=== PATIENT | female | born 2000 | race Caucasian/White ===

== ENCOUNTER 2019-04-24 14:15 | Emergency (ER) | payer BC ==
[2019-04-24 14:51] VITALS: O2SAT 100
--- NOTE | 2019-04-24 14:59 | ED.PDOC ---
History of Present Illness - General Chief Complaint: General Time Seen by Provider: 04/24/19 14:55 Source: patient, EMS notes reviewed Additional Information: 18 YEAR OLD COMPLAINTS OF PAIN LEFT LOWER LATERAL CHEST WALL LAST 2 DAYS NO HISTORY OF TRAUMA SHE HAS NO FEVER CHILLS NO ABDOMINAL PAIN NO DYSURIA NO FLANK PAIN NO NAUSEA VOMITING OR FEVER PAIN IS WORSE WITH DEEP BREATHING AND WITH MOVEMENTS LIKE STRETCHING PHYSICAL EXAM ALERT APPROPRIATE FOR HER AGE NO FEVER NO TCHYCARDIA NO SKIN DISCOLORATION ON THE CHEST WALL THERE IS MILD TENDERNESS ON THE LEFT LOWER ANTERIOR RIB NO CREPITAIONS NO AUB CUTANEOUS EMPHYSEMA - History of Present Illness Timing/Duration: - WEDNESDAY Severity: mild Improving Factors: nothing Worsening Factors: movement Associated Symptoms: denies symptoms Allergies/Adverse Reactions: Allergies NO KNOWN ALLERGY Allergy (Verified 04/24/19 14:30) Home Medications: Ambulatory Orders Mesalamine [Lialda] 1.2 gm PO TID 04/24/19 Review of Systems - Review of Systems Constitutional: States: no symptoms reported EENTM: States: no symptoms reported Respiratory: States: no symptoms reported Cardiology: States: no symptoms reported Gastrointestinal/Abdominal: States: no symptoms reported Genitourinary: States: no symptoms reported Musculoskeletal: States: no symptoms reported Skin: States: no symptoms reported Neurological: States: no symptoms reported Endocrine: States: no symptoms reported Hematologic/Lymphatic: States: no symptoms reported Family Medical History - Family History Father Hx Family;Other: Crohns DX Physical Exam - Physical Exam General Appearance: Alert, Comfortable Eye Exam: bilateral normal Ears, Nose, Throat: hearing grossly normal, normal ENT inspection, normal pharynx Neck: non-tender, full range of motion, supple Respiratory: chest non-tender, lungs clear, normal breath sounds, no respiratory distress, no accessory muscle use Cardiovascular/Chest: normal peripheral pulses, regular rate, rhythm, no edema, no gallop, no JVD, no murmur Gastrointestinal/Abdominal: normal bowel sounds, non tender, soft, no organomegaly, no pulsatile mass Extremity: normal range of motion, non-tender, normal inspection, no pedal edema 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
[2019-04-24 15:18] VITALS: BP 113/73; TEMP 98.8
== END 2019-04-24 15:05 | disposition home or self-care (01) ==
LOC: ER 14:15
DX: S20.212A Contusion of left front wall of thorax, initial encounter (principal); X58.XXXA Exposure to other specified factors, initial encounter; Y92.9 Unspecified place or not applicable